=== PATIENT | male | born 1965 | race Caucasian/White ===

== ENCOUNTER → 2017-11-16 13:54 | Outpatient (CLI) | payer OTHER, SELFPAY ==
[2017-11-16 14:30] LABS: Add Manual Diff / Slide Review NO; Basophils Percent Auto 0.9 % (0-2); Eosinophils Percent Auto 2.5 % (2-4); Hematocrit 45.6 % (41-53); Hemoglobin 15.9 g/dL (13.5-17.5); Lymphocytes Percent Auto 26.2 % (25-40); Mean Corpuscular HGB Conc 34.8 % (30-36); Mean Corpuscular Hemoglobin 29.1 PG (26-34); Mean Corpuscular Volume 83.7 fL (80-100); Monocytes Percent Auto 8.3 % (3-14); Neutrophils Absolute Auto 4300 /uL (3000-5900); Neutrophils Percent Auto 62.1 % (50-75); Platelet Count 190 X10^3/uL (150-400); Red Blood Cell Count 5.45 X10^6/uL (4.5-5.9); White Blood Cell Count 6.9 X10^3/uL (4.5-11.0)
[2017-11-16 14:51] LABS: Carbon Dioxide 30 mmol/L (22-32); Chloride 103 mmol/L (98-107); HEMOLYSIS < 15 (0-50); Potassium 4.2 mmol/L (3.4-5.1); Sodium 145 mmol/L (137-145)
== END ==
PROVIDERS: PCP Internal Medicine; Visit Provider Orthopaedic Surgery
DX: M16.12 Unilateral primary osteoarthritis, left hip (principal); Z01.818 Encounter for other preprocedural examination; Z01.812 Encounter for preprocedural laboratory examination
CPT/HCPCS: 36415; 80051; 85025; 93005

== ENCOUNTER 2017-12-02 08:13 | Inpatient (IN) | payer OTHER, SELFPAY ==
[2017-11-18 13:49] VITALS: BMI 37.0
[2017-12-02] VITALS (15 sets, daily range): BP systolic 104–142; BP diastolic 61–84; PULSE 67–96; RESP 12–20; TEMP 36.2–37.2; O2SAT 93–99; BMI 35.6
--- NOTE | 2017-12-02 | DI.RAD.S_ITS ---
PROCEDURE: XR PELVIS 1-2V INDICATIONS: TOTAL LEFT HIP TECHNIQUE: 1 view of the lower pelvis acquired. COMPARISON: [facility] [place], [place], XR PELVIS WITH LATERAL HIP LEFT, 11/17/2017, 16:18. FINDINGS: Bones: Patient is status post left hip arthroplasty, with hardware components in expected positions. The hip joint appears congruent. The visualized bony structures appear intact. Soft tissues: Overlying postoperative changes are noted. No suspicious soft tissue densities. IMPRESSION: Status post total left hip arthroplasty. No apparent complication or acute bony abnormality. Dictated by: Chang Lance M.D. on 12/02/2017 at 11:28 Approved by: Chang Lance M.D. on 12/02/2017 at 11:29
[2017-12-02] MEDS: LACTATED RINGERS 1,000 ML 42 ML IV ×2 (09:01→10:48)
--- NOTE | 2017-12-02 09:19 | PM.PREOP ---
Pre-operative Note Interval Note Pre-op Check: History & Physical Reviewed by Physician and Changes
[2017-12-02] MEDS: CEFAZOLIN 2 GM/100 ML FROZ.PIGGY IV (09:34)
--- NOTE | 2017-12-02 10:11 | SUR.OPER ---
Lateral on padded OR bed. Gel axillary roll. Arms secured on padded armboard with pillow supporting top arm. Padded hip positioner braces x4 - anterior and posterior chest and pelvis. Additional gel pad used anterior pelvis. Gel pad under bottom leg from knee to foot and secured with tape over sheet.
[2017-12-02] MEDS: BUPIVACAINE 0.25% W/ EPI 50 ML VIAL 30 ML INJ (10:21)
[2017-12-02] MEDS: BUPIVACAINE LIPOSOME 266 MG/20 ML VIAL INJ (10:22)
[2017-12-02] MEDS: BUPIVACAINE 0.25% W/ EPI 50 ML VIAL INJ (10:23)
[2017-12-02] MEDS: TRANEXAMIC ACID 1,000 MG VIAL 1000 MG INJ (10:25)
--- NOTE | 2017-12-02 10:36 | SUR.OPER ---
Pt had some scratches on his left ankle and red bumps on left hip, noticed prior surgical prep
--- NOTE | 2017-12-02 11:21 | PM.OP.1 ---
Operative Date/Time/Diagnoses - Date of procedure: 12/02/17 Time of procedure: 11:21 Pre-op diagnosis: Left hip osteoarthritis Post-op diagnosis: same Procedure & Clinicians Procedure: Left total hip arthroplasty (CPT code 07250 with assistant press operator) Same procedure as scheduled: Yes Indications: Patient is an 52-year-old male with severe left hip DJD. The patient has pain with activities and at rest, limited ambulation and activity tolerance, difficulties with ADLs, and failure of conservative treatment. We have discussed the nature of condition, treatment options, risks and benefits, and patient elects to proceed with total hip arthroplasty and gives informed consent. Surgeon: Brandon Mccabe Creative Technologist: Marivel Meek Anesthesia Type: Spinal Operative Notes Closure Type: primary Specimen(s): none sent Implants & Drains: Acetabulum: Morris and Nephew R3 acetabular component size 54 mm Femoral component: Morris and Nephew Synergy stem size 14 with standard offset Femoral head: 36 mm + 8 Oxinium Estimated Blood Loss (mL): 100 Blood products transfused: none Procedure in detail: After satisfaction induction of anesthetic, and administration of IV antibiotics, the patient was positioned in the lateral decubitus position with all bony prominences well padded and pelvic position secured using a hip gasoline power shovel operator positioning device. Left hip and lower extremity prepped and draped in the usual sterile fashion, 1st dose of intravenous tranexamic acid was administered, then a longitudinal incision was created centered over the greater trochanter and carried sharply through the skin and subcutaneous tissues down to the fascia fish which was divided longitudinally and retracted with a Charnley retractor. External rotators visualize, cut, tagged, and retracted posteriorly, then the capsule was cut in a T-type fashion with the corners tagged and retracted. Hip was dislocated and femoral neck cut made according to preoperative templating. Acetabular retractors then placed, and the acetabular labrum and osteophytes were excised. The acetabulum was then sequentially reamed to 53 mm with an excellent circumferential ream and fit with the trial. The trial component was removed and a permanent size 54 Morris and Nephew R3 acetabular component was selected, positioned, and impacted with satisfactory position and fixation achieved. Permanent liner was then inserted with the elevated lip directed posteriorly. Soft tissue then removed off the lateral femoral neck in the lateral neck was entered using a box osteotome. T-handled reamers placed down the canal followed by sequential broaching to 14 with the final broach left in place for trial reduction which demonstrated excellent leg length, range of motion, and stability characteristics with a 36 mm + 8 trial ball. The trial and broach were removed, and a permanent size 14 Morris and Nephew Synergy stem was selected and inserted with excellent position and fixation achieved. Another trial reduction yielded the above characteristics so the trial ball was exchanged for a permanent 36 mm + 8 Oxinium ball. The hip was irrigated and reduced and excellent leg length range of motion and stability characteristics were achieved and maintained. Periarticular tissues were infiltrated with Exparel. The hip was copiously irrigated, and the capsule repaired with #2 Ethibond, and the piriformis was repaired back to the greater trochanter with the same. Fascia fish closed with interrupted #1 Ethibond sutures, and the subcutaneous tissues were closed in 2 layers of 0 Vicryl and 2 0 Vicryl. Skin was closed with david and sterile dressings applied. Second dose of tranexamic acid was administered intravenously, and the anesthetic was terminated. Complications: none Condition: stable Disposition: PACU Plan for aftercare: Patient will be admitted to the acute care [facility], and anticipate discharge on postop day 1-2 with follow-up in office in 10-14 days. Outpatient physical therapy will be arranged and patient will continue to observe posterior hip precautions. Patient will continue use of postoperative Lovenox for 10 days postop.
--- NOTE | 2017-12-02 11:27 | P.OP_ITS ---
Operative Date/Time/Diagnoses - Date of procedure: 12/02/17 Time of procedure: 11:21 Pre-op diagnosis: Left hip osteoarthritis Post-op diagnosis: same Procedure & Clinicians Procedure: Left total hip arthroplasty (CPT code 90272 with inventory assistant) Same procedure as scheduled: Yes Indications: Patient is an 52-year-old male with severe left hip DJD. The patient has pain with activities and at rest, limited ambulation and activity tolerance, difficulties with ADLs, and failure of conservative treatment. We have discussed the nature of condition, treatment options, risks and benefits, and patient elects to proceed with total hip arthroplasty and gives informed consent. Surgeon: Brandon Mccabe Hydro Station Supervisor: Marivel Meek Anesthesia Type: Spinal Operative Notes Closure Type: primary Specimen(s): none sent Implants & Drains: Acetabulum: Morris and Nephew R3 acetabular component size 54 mm Femoral component: Morris and Nephew Synergy stem size 14 with standard offset Femoral head: 36 mm + 8 Oxinium Estimated Blood Loss (mL): 100 Blood products transfused: none Procedure in detail: After satisfaction induction of anesthetic, and administration of IV antibiotics, the patient was positioned in the lateral decubitus position with all bony prominences well padded and pelvic position secured using a hip airfreight loading supervisor positioning device. Left hip and lower extremity prepped and draped in the usual sterile fashion, 1st dose of intravenous tranexamic acid was administered, then a longitudinal incision was created centered over the greater trochanter and carried sharply through the skin and subcutaneous tissues down to the fascia fish which was divided longitudinally and retracted with a Charnley retractor. External rotators visualize, cut, tagged, and retracted posteriorly, then the capsule was cut in a T-type fashion with the corners tagged and retracted. Hip was dislocated and femoral neck cut made according to preoperative templating. Acetabular retractors then placed, and the acetabular labrum and osteophytes were excised. The acetabulum was then sequentially reamed to 53 mm with an excellent circumferential ream and fit with the trial. The trial component was removed and a permanent size 54 Morris and Nephew R3 acetabular component was selected, positioned, and impacted with satisfactory position and fixation achieved. Permanent liner was then inserted with the elevated lip directed posteriorly. Soft tissue then removed off the lateral femoral neck in the lateral neck was entered using a box osteotome. T- handled reamers placed down the canal followed by sequential broaching to 14 with the final broach left in place for trial reduction which demonstrated excellent leg length, range of motion, and stability characteristics with a 36 mm + 8 trial ball. The trial and broach were removed, and a permanent size 14 Morris and Nephew Synergy stem was selected and inserted with excellent position and fixation achieved. Another trial reduction yielded the above characteristics so the trial ball was exchanged for a permanent 36 mm + 8 Oxinium ball. The hip was irrigated and reduced and excellent leg length range of motion and stability characteristics were achieved and maintained. Periarticular tissues were infiltrated with Exparel. The hip was copiously irrigated, and the capsule repaired with #2 Ethibond, and the piriformis was repaired back to the greater trochanter with the same. Fascia fish closed with interrupted #1 Ethibond sutures, and the subcutaneous tissues were closed in 2 layers of 0 Vicryl and 2 0 Vicryl. Skin was closed with david and sterile dressings applied. Second dose of tranexamic acid was administered intravenously , and the anesthetic was terminated. Complications: none Condition: stable Disposition: PACU Plan for aftercare: Patient will be admitted to the acute care [facility], and anticipate discharge on postop day 1-2 with follow-up in office in 10-14 days. Outpatient physical therapy will be arranged and patient will continue to observe posterior hip precautions. Patient will continue use of postoperative Lovenox for 10 days postop.
--- NOTE | 2017-12-02 11:55 | SUR.PHASEI ---
STABLE [POST OP REPORT CALLED TO ELBA RASHID THEN PT BROUGHT UP TO ROOM AND LEFT IN STABLE CONDITION.
--- NOTE | 2017-12-02 15:48 | PC.NURSE ---
Ortho: Pt calm, no pain, ppp, feet =/warm, brisk cap refill. Duramorph spinal, cont pulse ox is on, sats 99-100%. Effect of spinal is unequal. Can move the lt leg (operated side) but can't move the rt. Sensation in the rt is at the hip area. Unable to move toes at this time. Hungry and fluids taken w/out problems in pacu, given fruit and yogurt and damian same w/out problems. Spouse at bedside. No void since surgery and is awaiting PT to come and see him. Cont w/poc.
[2017-12-02] MEDS: LACTATED RINGERS 1,000 ML 100 ML IV (17:03)
[2017-12-02] MEDS: ONDANSETRON 4 MG/2 ML INJ IV ×2 (17:04→20:56)
[2017-12-02] MEDS: DOCUSATE 100 MG CAPSULE PO (20:56)
--- NOTE | 2017-12-02 22:28 | PC.NURSE ---
Addendum entered by Bill Mckeon R.N. 12/02/17 22:45: NO LUCK ON BSC,PATIENT STATES DOES NOT WANT BLADDER SCAN,JUST NEED COUPLE MORE HOURS,AND HE WILL GO, REFUSES [facility] ,WANTS TO DRINK WATER. Original Note: PATIENT IS UP TO CHAIR AND BSC,DOES NOT FEEL NEED TO URINATE YET NO PAIN,STATES HE WAS DEHYDRATED AND DOES NOT NEED TO GO.ATTEMPTING TO URINATE AGAIN,DOES NOT WANT [facility]
[2017-12-03] MEDS: hydrOXYzine pamoate 25 MG CAPSULE PO (00:01)
[2017-12-03 05:50] LABS: Hematocrit 36.7 % (41-53); Hemoglobin 12.9 g/dL (13.5-17.5)
[2017-12-03 06:03] VITALS: BP 124/68; PULSE 83; RESP 16; TEMP 36.9; O2SAT 95
--- NOTE | 2017-12-03 07:31 | PM.PNPO.1 ---
Subjective Date Patient Seen: 12/03/17 Time Patient Seen: 07:31 Interval history: Patient's pain is mild. No nausea vomiting. Patient not able to urinate on his own and head and out catheter her last night. Was able to urinate a little as his own early this morning nothing recently. Physical therapy has not been by yet to work with the patient. He is otherwise without complaints. Exam Vital Signs (past 8 hours): - 12/03/17 06:03 Temperature 98.5 F Pulse Rate 83 Respiratory Rate 16 Blood Pressure 124/68 H Pulse Oximetry 95 Oxygen Delivery Method Room Air Oxygen Flow Rate 0 Narrative Exam Narrative: 52-year-old male resting comfortably in bed in no apparent distress. Left hip dressing is clean, dry and intact. Motor functions intact distal left lower extremity. Legs are warm and dry. Sensation grossly intact to light touch left lower extremity. Objective Labs Result Diagrams: 12/03/17 05:15 Labs: Laboratory Results - last 24 hr 12/03/17 05:15 Hgb 12.9 L Hct 36.7 L Assessment & Plan Post-op Postoperative Procedures Operation Date: 12/02/17 09:45 Actual Procedures Side Surgeon p Total Hip Arthroplasty Left Brandon Mccabe MD Mobilized with physical therapy today. Possible discharge home today. Patient will not take Tylenol secondary to hepatitis-C. Time Spent With Patient less than 15 minutes Quality VTE Deep Vein Thrombosis/Pulmonary Embolism Present on Admission: No
[2017-12-03 08:00] VITALS: BP 130/70; PULSE 86; RESP 18; TEMP 37.1; O2SAT 98
[2017-12-03] MEDS: OXYCODONE/ACETAMINOPHEN 5/325 TABLET 2 TAB PO (08:34)
[2017-12-03] MEDS: ENOXAPARIN 40 MG/0.4 ML SYRINGE SUBCUT (08:34)
[2017-12-03] MEDS: DOCUSATE 100 MG CAPSULE PO (08:35)
--- NOTE | 2017-12-03 10:59 | P.DS_ITS ---
History of Present Illness Date Patient Seen: 12/03/17 Time Patient Seen: 10:54 Chief complaint: [id number] Narrative: Patient is a 52-year-old male with a history of left hip osteoarthritis. He failed conservative measures and elected to proceed with a left total hip arthroplasty by Dr. Mccabe at [facility]. Discharge Providers Date of admission: 12/02/17 08:13 Primary care physician: Enrique Wagner MD Consults: 12/02/17 14:08 Consult to Discharge Planning Routine Comment: Consult to Physical Therapy Evaluate & Treat Comment: Physician Instructions: post op NADIYA protocol Discharge provider: Marivel Meek PA-C Summary Discharge Diagnosis: Left hip osteoarthritis Hospital Course: Patient was admitted and taken to the operating room he had a left total hip arthroplasty by Dr. Mccabe. He recovered well and was transferred for further care. Night of postop day 1 patient had issues urinating and he had to have an in-and out catheter. In the morning and he was able to void some. But afternoon he was able to void without any difficulty. Patient was ambulating well and pain was under control. He was ready for discharge to home. He is a [facility] patient and has his discharge rxs already except for Lovenox which he was given to take for 9 days. Exam Vital Signs (past 8 hours): - 12/03/17 06:03 12/03/17 08:00 Temperature 98.5 F 98.8 F Pulse Rate 83 86 Respiratory Rate 16 18 Blood Pressure 124/68 H 130/70 H Pulse Oximetry 95 98 Oxygen Delivery Method Room Air Oxygen Flow Rate 0 Narrative Exam Narrative: Patient in bed. Appears comfortable. Alert and orient x3. Left hip dressing clean dry intact. Bilateral calf soft and nontender. 5/5 left ankle strength. Marked swelling left thigh. NV status intact. Objective Labs Result Diagrams: 12/03/17 05:15 Labs: Laboratory Results - last 24 hr 12/03/17 05:15 Hgb 12.9 L Hct 36.7 L Discharge Plan Discharge Plan Patient Disposition: Home, Self-Care Discharge comment: Patient to take oxycodone 5mg , 1-2 tabs every 4hrs prn pain. Do not take Tylenol due to hx of liver disease. Finish Lovenox injections, then take ASA 81 mg daily for 4 weeks. Discharge Med Rec/Prescriptions Prescriptions: New hydroxyzine pamoate 25 mg Capsule 25 mg PO Q6HR PRN (Reason: Spasms) Qty: 60 RF: 0 enoxaparin [Lovenox] 40 mg/0.4 mL Syringe 40 mg Sub-Q DAILY Qty: 9 RF: 0 Continue meloxicam 15 mg Tablet 15 mg PO DAILY RF: 0 tramadol 50 mg Tablet 50 mg PO PRN PRN (Reason: pain) RF: 0 losartan-hydrochlorothiazide 50-12.5 mg Tablet 1 tab PO DAILY RF: 0 Follow up/Referrals: Brandon Mccabe MD [Physician] - Provider Discharge Instructions Diet: Diet as Tolerated Activity: as tolerated. Posterior hip precautions. Ambulate at least 4 times a day. Cold/Heat Therapy: Apply ice to left hip as needed for pain and swelling. Wound Care Report to your healthcare provider any signs of infection, such as:: chills, fever, increased pain and unusual drainage Dressing: Leave dressing intact. May shower. Visit Report/Discharge Packet Instructions: DI for Hip Replacement Discharge Data Primary Care Provider: Enrique Wagner Attending Provider: Brandon Mccabe Admit Date/Time: 12/02/17 08:13 Quality VTE Deep Vein Thrombosis/Pulmonary Embolism Present on Admission: No
--- NOTE | 2017-12-03 13:01 | CM.DPNOTE ---
Discharge Planning/Care Management CM Discharge Assessment Start: 12/03/17 13:00 Freq: Status: Active Protocol: Document 12/03/17 13:00 (Rec: 12/03/17 13:00 [id number]) Discharge Planning Assessment History Provided By Patient Medical Record Has Patient been admitted in last 30 No days? Prior Living Arrangements House Household Members spouse Type of transporation used prior to Drives own vehicle admit Independent with ADL's Yes Is patient alert and oriented? Yes Patient Discharge Plan Description OP PT Therapy Referrals Initiated None needed Discharge Plan Home Review Status Complete Next Review Type Discharge Review
--- NOTE | 2017-12-03 13:05 | PT.IIE ---
Current Diagnoses Unilateral primary osteoarthritis, left hip (12/02/17) Surgery Performed Operation Date: 12/02/17 09:45 Actual Procedures p Total Hip Arthroplasty(Left) - Brandon Mccabe MD Surgical History (Last Updated 11/18/17 @ 14:22 by Riddhi John, RN) History of knee surgery (Acute) Medical History (Last Updated 11/20/17 @ 07:46 by Riddhi John RN) Abnormal liver enzymes (Acute) Discoloration of skin (Acute) HTN (hypertension) (Acute) Hepatitis C (Acute) History of eye injury (Acute) Tingling of both feet (Acute) Physical Therapy Inpatient Evaluation/Re-Eval M1 PT/OT-IP Prior Functional Status Start: 12/03/17 12:46 Freq: NEEDED Status: Active Protocol: Document 12/03/17 12:47 AB (Rec: 12/03/17 13:05 AB [id number]) Medical Review Prior Functional Status Medical History Reviewed Yes Mobility and Gait pt stated that he is independent with all mobilities and ambulation without AD Social History Household Members spouse Living Arrangements House Number of Floors (Floors) One Floor Number of Stairs To Enter/Railing? has a 4 inch step to enter Home Environment High Toilet Walk in Shower Home Equipment Four Wheel Walker Raised Toilet Seat w/Armrests Hand Held Shower Employment Status Weather Teacher Employed Additional Social History Comment pt works on [employer] M2 PT-IP Current Condition Start: 12/03/17 12:46 Freq: NEEDED Status: Active Protocol: Document 12/03/17 12:47 AB (Rec: 12/03/17 13:05 AB [id number]) Physical Therapy Current Condition Current Condition Evaluation Date 12/03/17 Treatment Diagnosis s/p L NADIYA Onset Date 12/02/17 Precautions Posterior Hip Precautions No Hip Flexion > 90 degrees No Hip Internal Rotation No Hip Adduction Weight Bearing Status Weight Bearing Status Weight Bear as Tolerated M3 PT-IP Subjective Start: 12/03/17 12:46 Freq: NEEDED Status: Active Protocol: Document 12/03/17 12:47 AB (Rec: 12/03/17 13:05 AB [id number]) Subjective Physical Therapy Visit Type Type Initial Evaluation Visit Start Time 10:00 Visit Stop Time 10:55 Total Visit Minutes 55 Number of INSTRUCTIONAL PARAPROFESSIONAL Visits 0 Physical Therapy Visit Comments Patient Comments i want to go home Therapy Pain Assessment Pain When Pain Assessed At Rest Pain Present Pain Present Pain Reported Location left hip Intensity 3 Scale Used Numeric (1 - 10) Pain Management Techniques Apply Cold Timing of Activity with Medications M4 PT-IP Mobility and Gait Start: 12/03/17 12:46 Freq: NEEDED Status: Active Protocol: Document 12/03/17 12:47 AB (Rec: 12/03/17 13:05 AB [id number]) PT-Bed Mobility Assessment Supine to Sit Supine to Sit Standby Assistance Sit to Supine Sit to Supine Standby Assistance Scooting Scooting to Edge of Bed Standby Assistance PT-Transfer Assessment Sit to and From Stand Sit to and from Stand Standby Assistance Equipment Transfer Assistive Device Gait Belt Front Wheeled Walker Orthotic/Prosthetic Devices or Brace: No Gait Assessment Gait Gait Assistance Required: Standby Assistance Contact Guard Assist Distance (Feet) (feet) 75 Able to Maintain Weight Bearing Status Yes During Gait Assistive Devices Assistive Device Gait Belt Front Wheeled Walker Orthotic/Prosthetic Devices or Brace: No Gait Deviations General Gait Pattern Decreased Stride Length Decreased Feet Clearance Factors Limiting Gait Function Factors Limiting Gait Function Decreased Activity Tolerance Decreased Strength Limited Range of Motion Pain Poor Balance Comments Gait Comments attempted 4WW but pt's 4WW is too low for him. stated that they will get a FWW for him . Stair Climbing Assessment Evaluation Level of Assist On Stairs Contact Guard Assistance Devices Stair Climbing Assistive Devices Front Wheel Walker Technique/Endurance Stair Climbing Direction Ascend and Descend Stair Climbing Technique Step to Step Number of Steps Climbed 1 Query Text: Stair Climbing Set # Repetitions (reps) 4 Comments Stair Climbing Comments caregiver training conducted and spouse was able to assist pt safely PT-Balance Assessment Sitting Balance and Reactions Static Sitting Balance Ability Good Dynamic Sitting Balance Ability Good Standing Balance and Reactions Static Standing Balance Ability Fair Dynamic Standing Balance Ability Fair M5 PT-IP Objective Assessments Start: 12/03/17 12:46 Freq: NEEDED Status: Active Protocol: Document 12/03/17 12:47 AB (Rec: 12/03/17 13:05 AB [id number]) Orientation Orientation/Cognition Level of Alertness Alert Orientation Name Age Birthday Month Date Year Day of Week Place Situation Strength Lower Extremity Strength Assessment Left Impaired Hip 4-/5 Knee 4-/5 Ankle 4+/5 M6 PT-IP Treatment Start: 12/03/17 12:46 Freq: NEEDED Status: Active Protocol: Document 12/03/17 12:47 AB (Rec: 12/03/17 13:05 AB [id number]) Physical Therapy Treatment Education Education Provided Precautions Weight Bearing Status Post-Op Packet Safety M7 PT-IP Assessment and Plan Start: 12/03/17 12:46 Freq: NEEDED Status: Active Protocol: Document 12/03/17 12:47 AB (Rec: 12/03/17 13:05 AB [id number]) PT Summary Assessment and Plan Potential Rehabilitation Potential Good Status of Condition at Evaluation Stable Summary Impairments Pain ROM Strength Balance Sensation Cognition Bed Mobility Transfers Gait Activity Tolerance Assessment Summary pt requiring SBA to CGA with mobility and will have spouse to assist him at home. caregiver training conducted and was able to assist pt safely Goals Bed Mobility Goal Independent Transfer Goal Independent Gait Goal Independent Gait Distance 150 Other Goals up/down 1 step SBA using FWW Days to Meet Goals 2 Frequency of Treatment Frequency Of Treatment Twice a Day Treatment Plan Physical Therapy Treatment Plan Bed Mobility Training Transfer Training Gait Training Therapeutic Exercise Balance Retraining Post Op Education Discharge Planning Hot or Cold Pack Neuromuscular Re-ed Coordination Retraining Manual Therapy Recommendations To Nursing Amount of Assist Needed 1 Person Assist Discharge Recommendations PT Discharge Recommendations Home with Assistance Outpatient PT Equipment Needed for Home Before FWW: pt stated that they will Discharge get one
--- NOTE | 2017-12-03 13:20 | PC.NURSE ---
Discharge: Feels ready for d/c home. Seen by PT this am and received there final instructions and has his exercises. Reviewed hip precautions and general d/c instructions for total hip and constipation. Additionally pt requested information about hep c, liver bx and testing which was given to him, he has a recent dx of hep c and has been concerned about this. Pt has voided several times w/out problems. Lovenox teaching completed. Pt gave own lovenox injection using correct tech. Spouse here at time of teaching. Discussed sharps disposal. Dressing changed to lt hip to coversite dressing. Incision is stapled, no drainage, sl bruised, david intact. Given rx for lovenox, he already has his other rx's. Questions answered. Pt d/c home via auto w/spouse and friend.
== END 2017-12-03 12:30 | disposition home or self-care (01) | DRG 470 ==
PROVIDERS: Admitting Provider Orthopaedic Surgery; PCP Internal Medicine; Visit Provider Orthopaedic Surgery
PROC: 0SRB0JZ Replacement of Left Hip Joint with Synthetic Substitute, Open Approach (ICD-10-PCS; CPT 27130; principal; 2017-12-02 09:45)
DX: M16.12 Unilateral primary osteoarthritis, left hip (principal); B19.20 Unspecified viral hepatitis C without hepatic coma; R39.198 Other difficulties with micturition; I10 Essential (primary) hypertension; Z87.891 Personal history of nicotine dependence; E66.01 Morbid (severe) obesity due to excess calories; Z68.35 Body mass index [BMI] 35.0-35.9, adult
CPT/HCPCS: 36415; 72170; 85014; 85018; 97116; 97161; 97530; C1776; C9290; J0690; J1100; J1650; J2250; J2274; J2405; J2704; J3010

== ENCOUNTER → 2020-02-09 07:13 | Outpatient (CLI) | payer OTHER, SELFPAY ==
[2017-12-02 11:55] VITALS: BMI 35.6
[2020-02-09 08:46] LABS: Add Manual Diff / Slide Review NO; Basophils Absolute Auto 0 /uL (0-100); Basophils Percent Auto 0.4 % (0-2); Eosinophils Absolute Auto 300 /uL (0-450); Eosinophils Percent Auto 5.3 % (2-4); Hematocrit 44.5 % (41-53); Hemoglobin 15.3 g/dL (13.5-17.5); Lymphocytes Absolute Auto 1700 /uL (1100-4500); Lymphocytes Percent Auto 32.4 % (25-40); Mean Corpuscular HGB Conc 34.3 % (30-36); Mean Corpuscular Hemoglobin 27.6 PG (26-34); Mean Corpuscular Volume 80.3 fL (80-100); Monocytes Absolute Auto 500 /uL (0-900); Monocytes Percent Auto 9.3 % (3-14); Neutrophils Absolute Auto 2700 /uL (1500-7000); Neutrophils Percent Auto 52.6 % (50-75); Platelet Count 194 X10^3/uL (150-400); Red Blood Cell Count 5.55 X10^6/uL (4.5-5.9); Red Cell Distribution Width 14.8 % (11.6-14.8); White Blood Cell Count 5.1 X10^3/uL (4.5-11.0)
[2020-02-09 09:10] LABS: Alanine Aminotransferase 32 IU/L (<50); Albumin 4.4 g/dL (3.5-5.0); Albumin Globulin Ratio 1.7 (1.0-2.8); Alkaline Phosphatase 75 U/L (38-126); Aspartate Aminotransferase 30 IU/L (17-59); BUN Creatinine Ratio 16.7 (6-22); Bilirubin Total 0.8 mg/dL (0.2-1.3); Blood Urea Nitrogen 19 mg/dL (9-20); Calcium 9.4 mg/dL (8.4-10.2); Carbon Dioxide 30 mmol/L (22-32); Chloride 104 mmol/L (98-107); Cholesterol 142 mg/dL (140-199); Estimated Glomerular Filt Rate > 60.0 mL/min (>60); Globulin 2.6 g/dL (1.7-4.1); Glucose 105 mg/dL (70-100); HDL Cholesterol 26 mg/dL (40-60); HEMOLYSIS < 15 (0-50); LDL Cholesterol Calculated 75 mg/dL (<100); Potassium 4.3 mmol/L (3.4-5.1); Sodium 141 mmol/L (137-145); Triglycerides 205 mg/dL (35-150)
[2020-02-09 09:36] LABS: Prostate Specific Antigen Scrn 0.786 ng/mL (0.1-4.0)
== END ==
PROVIDERS: PCP Internal Medicine; Referring Provider Internal Medicine; Visit Provider Internal Medicine
DX: I10 Essential (primary) hypertension (principal); E66.9 Obesity, unspecified; M15.0 Primary generalized (osteo)arthritis; B18.2 Chronic viral hepatitis C
CPT/HCPCS: 36415; 80053; 80061; 85025; G0103

== ENCOUNTER → 2020-03-29 15:17 | Outpatient (CLI) | payer OTHER, SELFPAY ==
[2017-12-02 11:55] VITALS: BMI 35.6
--- NOTE | 2020-03-29 | DI.RAD.S_ITS ---
PROCEDURE: XR SINUS MIN 3V INDICATIONS: superficial foreign body of face TECHNIQUE: One view of the sinuses was acquired. COMPARISON: None. FINDINGS: Sinuses: Visualized sinuses demonstrate no air-fluid levels or mucosal thickening. Bones: No suspicious bony lesions. Nasal septum appears midline. IMPRESSION: Unremarkable exam with no plain radiographic evidence of sinusitis. Dictated by: Greg Lomas M.D. on 03/29/2020 at 16:40 Approved by: Greg Lomas M.D. on 03/29/2020 at 16:40
== END ==
PROVIDERS: PCP Internal Medicine; Referring Provider Internal Medicine; Visit Provider Internal Medicine
DX: S00.85XA Superficial foreign body of other part of head, initial encounter (principal); W45.8XXA Other foreign body or object entering through skin, initial encounter
CPT/HCPCS: 70220

== ENCOUNTER → 2024-02-01 14:40 | Outpatient (CLI) | payer OTHER, SELFPAY ==
[2017-12-02 11:55] VITALS: BMI 35.6
--- NOTE | 2024-02-01 | DI.RAD.S_ITS ---
PROCEDURE: XR HIP W PEL IF DONE RT 2V INDICATIONS: worsening right hip pain TECHNIQUE: 2 views of the hip were acquired. COMPARISON: [facility], CR, HIPBILAT 3TO4V W PEL IF PERFD, 09/08/2017, 13:00. FINDINGS: Left total hip arthroplasty, incompletely evaluated. Mild degenerative changes of the right hip, new from prior exam. No acute fracture or dislocation of the right hip. Lumbar sacral segmentation anomaly. IMPRESSION: Mild degenerative change of the right hip, new from prior exam. Dictated by: Adilia Carter M.D. on 02/01/2024 at 17:40 Approved by: Adilia Carter M.D. on 02/01/2024 at 17:42
== END ==
PROVIDERS: PCP Student in an Organized Health Care Education/Training Program; Referring Provider Student in an Organized Health Care Education/Training Program; Visit Provider Student in an Organized Health Care Education/Training Program
DX: M25.551 Pain in right hip (principal); Z96.642 Presence of left artificial hip joint
CPT/HCPCS: 73502